=== PATIENT | male | born 1970 | race Caucasian/White ===

== ENCOUNTER → 2016-10-18 | Outpatient (CLI) | payer OTHER ==
--- NOTE | 2016-10-18 16:07 | REP ---
PA and lateral chest: Comparison 07/11/2014. There is an incomplete inspiratory effort with under aeration of the lung alonzo. There are no focal infiltrates. No pleural effusions. No masses. Cardiac size is normal. The miles, mediastinum, and bony thorax are unremarkable. There is no interval change. Impression: Incomplete inspiratory effort, otherwise, negative PA and lateral chest. Signed by Russel Bernabe MD 10/18/2016 03:58 P
== END ==
LOC: M WUC 13:11
PROVIDERS: ATTEND Nurse Practitioner Adult Health
DX: R06.02 Shortness of breath (principal)

== ENCOUNTER 2017-09-19 11:53 | Emergency (ER) | payer OTHER ==
[2017-09-19] MEDS: NS 1,000 ML IV (12:40)
[2017-09-19] MEDS: ASPIRIN 81 MG CHEW TABLET PO (12:40)
[2017-09-19] MEDS: GI COCKTAIL 50ML BTL(HYOSCYAMINE/MAALOX/LIDOCAINE VISCOUS)(1:3:1) PO (12:40)
[2017-09-19 12:50] LABS: BASO # 0.1 10^3/uL (0.0-0.2); BASO % 0.6 % (0.0-1.0); EOS # 0.2 10^3/uL (0.0-0.50); EOS % 2.2 % (0.0-3.0); HEMATOCRIT 50.1 % (42.0-52.0); HEMOGLOBIN 16.8 g/dl (14.0-18.0); IMMATURE GRANULOCYTE % 0.5 % (0-3.0); LYMPH # 2.2 10^3/uL (1.5-4.5); LYMPH % 26.1 % (24.0-44.0); MEAN CORPUSCULAR HEMOGLOBIN 28.9 pg (27.0-33.0); MEAN CORPUSCULAR HGB CONC 33.5 g/dl (32.0-36.5); MEAN CORPUSCULAR VOLUME 86.2 fl (80.0-96.0); MONO # 0.8 10^3/uL (0.0-0.8); MONO % 9.4 % (0.0-5.0); NEUTROPHILS # 5.1 10^3/uL (1.8-7.7); NEUTROPHILS % 61.2 % (36.0-66.0); PLATELET COUNT, AUTOMATED 204 10^3/uL (150-450); RED BLOOD COUNT 5.81 10^6/uL (4.30-6.10); RED CELL DISTRIBUTION WIDTH 13.2 % (11.5-14.5); WHITE BLOOD COUNT 8.3 10^3/uL (4.0-10.0)
[2017-09-19 12:54] LABS: PROTHROMBIN TIME 13.3 SECONDS (12.4-14.5)
[2017-09-19] MEDS: NITROGLYCERIN 0.4 MG SUBL TABLET SL (12:55)
[2017-09-19 13:07] LABS: ALBUMIN/GLOBULIN RATIO 0.91 (1.00-1.93); ALKALINE PHOSPHATASE 106 U/L (45-117); ALT/SGPT 98 U/L (12-78); ANION GAP 10 MEQ/L (8-16); AST/SGOT 92 U/L (7-37); BILIRUBIN,DIRECT < 0.1 MG/DL (0.0-0.2); BILIRUBIN,TOTAL 0.5 MG/DL (0.2-1.0); BLOOD UREA NITROGEN 9 MG/DL (7-18); CALCIUM LEVEL 9.2 MG/DL (8.5-10.1); CARBON DIOXIDE LEVEL 26 MEQ/L (21-32); CHLORIDE LEVEL 103 MEQ/L (98-107); CPK CREATINE PHOSPHOKINASE 109 U/L (39-308); CREATININE FOR GFR 0.98 MG/DL (0.70-1.30); GLOMERULAR FILTRATION RATE > 60.0 (>60); GLUCOSE, FASTING 166 MG/DL (70-100); LIPASE 1238 U/L (73-393); MB/CK RELATIVE INDEX 0.91 (< OR =4); POTASSIUM SERUM 3.9 MEQ/L (3.5-5.1); SODIUM LEVEL 139 MEQ/L (136-145); TOTAL PROTEIN 8.4 GM/DL (6.4-8.2); TROPONIN I < 0.02 NG/ML (< 0.10)
[2017-09-19] MEDS ORDERED: ISOVUE-370 76% 100ML VIAL (Q9967) As Ordered (13:23)
== END 2017-09-19 15:26 | disposition home or self-care (01) ==
LOC: M ED 11:53
DX: K85.90 Acute pancreatitis without necrosis or infection, unspecified (principal); E11.9 Type 2 diabetes mellitus without complications; I10 Essential (primary) hypertension; E78.5 Hyperlipidemia, unspecified; J45.909 Unspecified asthma, uncomplicated; Z88.8 Allergy status to other drugs, medicaments and biological substances; Z79.899 Other long term (current) drug therapy; Z79.84 Long term (current) use of oral hypoglycemic drugs
CPT/HCPCS: Q9967

== ENCOUNTER → 2017-10-01 | Outpatient (CLI) | payer OTHER ==
[2017-10-01 19:54] LABS: BASO # 0.1 10^3/uL (0.0-0.2); BASO % 0.6 % (0.0-1.0); EOS % 0.4 % (0.0-3.0); HEMATOCRIT 50.6 % (42.0-52.0); HEMOGLOBIN 16.5 g/dl (14.0-18.0); IMMATURE GRANULOCYTE % 0.3 % (0-3.0); LYMPH # 1.7 10^3/uL (1.5-4.5); LYMPH % 21.3 % (24.0-44.0); MEAN CORPUSCULAR HEMOGLOBIN 28.3 pg (27.0-33.0); MEAN CORPUSCULAR HGB CONC 32.6 g/dl (32.0-36.5); MEAN CORPUSCULAR VOLUME 86.8 fl (80.0-96.0); MONO # 1.1 10^3/uL (0.0-0.8); NEUTROPHILS # 5.1 10^3/uL (1.8-7.7); NEUTROPHILS % 63.4 % (36.0-66.0); PLATELET COUNT, AUTOMATED 210 10^3/uL (150-450); RED BLOOD COUNT 5.83 10^6/uL (4.30-6.10); RED CELL DISTRIBUTION WIDTH 13.5 % (11.5-14.5)
[2017-10-01 20:14] LABS: ALBUMIN/GLOBULIN RATIO 0.89 (1.00-1.93); ALKALINE PHOSPHATASE 91 U/L (45-117); ALT/SGPT 60 U/L (12-78); AMYLASE 38 U/L (25-115); ANION GAP 9 MEQ/L (8-16); AST/SGOT 56 U/L (7-37); BILIRUBIN,TOTAL 1.1 MG/DL (0.2-1.0); BLOOD UREA NITROGEN 9 MG/DL (7-18); CALCIUM LEVEL 8.6 MG/DL (8.5-10.1); CARBON DIOXIDE LEVEL 26 MEQ/L (21-32); CHLORIDE LEVEL 102 MEQ/L (98-107); CREATININE FOR GFR 1.04 MG/DL (0.70-1.30); GLOMERULAR FILTRATION RATE > 60.0 (>60); GLUCOSE, FASTING 155 MG/DL (70-100); LIPASE 172 U/L (73-393); POTASSIUM SERUM 4.7 MEQ/L (3.5-5.1); SODIUM LEVEL 137 MEQ/L (136-145); TOTAL PROTEIN 8.5 GM/DL (6.4-8.2)
== END ==
LOC: M WUC 16:10
DX: A09 Infectious gastroenteritis and colitis, unspecified (principal)
CPT/HCPCS: 82150

== ENCOUNTER → 2017-10-09 | Outpatient (CLI) | payer OTHER | LOC: M WUC 18:23 | DX: J18.9 Pneumonia, unspecified organism (principal) | CPT/HCPCS: 71046 ==

== ENCOUNTER → 2017-10-23 | Outpatient (CLI) | payer OTHER | LOC: M WUC 14:43 | DX: J16.8 Pneumonia due to other specified infectious organisms (principal) ==

== ENCOUNTER → 2017-10-24 | Outpatient (REF) | payer OTHER | LOC: M LAB REF 11:53 | DX: J16.8 Pneumonia due to other specified infectious organisms (principal) ==

== ENCOUNTER → 2018-01-30 | Outpatient (CLI) | payer OTHER ==
[2018-01-30 13:28] LABS: CREATININE FOR GFR 0.87 MG/DL (0.70-1.30); GLOMERULAR FILTRATION RATE > 60.0 (>60)
[2018-01-30 13:28] LABS: BLOOD UREA NITROGEN 10 MG/DL (7-18)
== END ==
LOC: M WUC 11:15
DX: Z01.818 Encounter for other preprocedural examination (principal); M54.5 Low back pain
CPT/HCPCS: 82565

== ENCOUNTER → 2018-08-04 | Outpatient (REF) | payer OTHER ==
[~2018-08-04] MED LIST: ABIL1TAB11 PO; EFFE150C2 PO; LOSA100T50 PO; METF500T13 PO; NORCOTAB PO; PROT1TAB2 PO; WELLTAB38 PO; XANA0.5T PO; ZOFR4TAB14 PO
[2018-08-04 18:09] LABS: FREE T3 2.7 PG/ML (2.2-4.0)
[2018-08-04 18:11] LABS: THYROID PEROXIDASE ANTIBODY 28.4 U/ML (<60.0)
[2018-08-04 18:12] LABS: THYROGLOBULIN ANTIBODY 15.7 U/ML (<60.0)
== END ==
LOC: M LAB REF 17:31
PROVIDERS: ATTEND Nurse Practitioner Adult Health
DX: E03.9 Hypothyroidism, unspecified (principal)

== ENCOUNTER → 2019-06-09 | Outpatient (CLI) | payer OTHER ==
[~2019-06-09] MED LIST changes: +HYDR-3715 PO; -NORCOTAB PO
[2019-06-09 15:41] LABS: BLOOD UREA NITROGEN 15 MG/DL (7-18); CREATININE FOR GFR 0.81 MG/DL (0.70-1.30); GLOMERULAR FILTRATION RATE > 60.0 (>60)
== END ==
LOC: M WUC 10:46
PROVIDERS: ATTEND Nurse Practitioner Family
DX: M54.5 Low back pain (principal)

== ENCOUNTER → 2019-07-02 | Outpatient (CLI) | payer OTHER ==
[~2019-07-02] MED LIST changes: +ACET300T52; +CALC-190 PO; +METO1TAB7; +PRAZ1CAP; +TIZA4TAB4; +TRAZ-252
--- NOTE | 2019-07-02 09:31 | REP ---
Clinical: Abdominal pain with history of incisional hernia. Technique: Axial noncontrast images from the lung bases to the pubic symphysis with coronal and sagittal re-formations. Comparison: 09/19/2017. Findings: Liver demonstrates subtle scattered hypodensities measuring up to approximately 1.8 cm which may represent cysts. Spleen, pancreas, gallbladder, bilateral adrenal glands and kidneys are relatively stable/normal for noncontrast evaluation. Evidence for prior gastric bypass surgery. There is a periumbilical hernia measuring approximately 4 cm maximal diameter which appears to contain fat and presumed subcutaneous stranding as well as possible small amount of fluid. Underlying bowel is identified at the peritoneal defect but without definite evidence for bowel herniation. There is no evidence for bowel obstruction. Normal terminal ileum, cecum and appendix are identified in the right lower quadrant. Few scattered colonic diverticula noted without acute diverticulitis. Pelvis demonstrates normal bladder and mild prostatomegaly along with small fat containing left inguinal hernia. No ascites. No free air. No adenopathy. Abdominal aorta without aneurysm. Musculoskeletal structures demonstrate degenerative changes and evidence for prior lower lumbar laminectomy and posterior fixation. Impression: 1. Hepatic hypodensities up to 1.8 cm cannot be further evaluated, and may warrant ultrasound evaluation. 2. Periumbilical hernia as described above. 3. Mild prominence to the prostate gland. Electronically Signed by Trenton Jones MD 07/02/2019 09:22 A
== END ==
LOC: M RAD 08:54
PROVIDERS: ATTEND Surgery
DX: K76.9 Liver disease, unspecified (principal); K57.90 Diverticulosis of intestine, part unspecified, without perforation or abscess without bleeding; Z98.84 Bariatric surgery status; K43.2 Incisional hernia without obstruction or gangrene; R10.33 Periumbilical pain

== ENCOUNTER 2019-07-05 17:19 | Emergency (ER) | payer OTHER ==
[~2019-07-05] VITALS: Ht 172.7 cm; Wt 110.6 kg
[~2019-07-05 17:19] MED LIST changes: -ACET300T52; -CALC-190 PO; -METO1TAB7; -PRAZ1CAP; -TIZA4TAB4; -TRAZ-252
[2019-07-05] MEDS ORDERED: ONDANSETRON 4MG/2ML VIAL (J2405) IV ONE (18:00)
[2019-07-05] MEDS ORDERED: MORPHINE 4 MG/ML 1ML VIAL/SYRINGE (J2270) IV ONE (18:00)
[2019-07-05] MEDS ORDERED: METO1TAB7 (18:09)
[2019-07-05] MEDS ORDERED: ACET300T52 (18:09)
[2019-07-05] MEDS ORDERED: PRAZ1CAP (18:09)
[2019-07-05] MEDS ORDERED: TIZA4TAB4 (18:09)
[2019-07-05] MEDS ORDERED: TRAZ-252 (18:09)
[2019-07-05] MEDS ORDERED: CALC-190 PO (18:09)
[2019-07-05 18:25] LABS: BASO % 0.5 % (0.0-1.0); EOS # 0.1 10^3/uL (0.0-0.5); EOS % 1.8 % (0.0-3.0); HEMATOCRIT 47.9 % (42.0-52.0); HEMOGLOBIN 15.1 g/dl (13.5-17.5); LYMPH # 2.8 10^3/uL (1.5-5.0); LYMPH % 34.7 % (24.0-44.0); MEAN CORPUSCULAR HGB CONC 31.5 g/dl (32.0-36.5); MEAN CORPUSCULAR VOLUME 79.3 fl (80.0-96.0); MONO # 0.7 10^3/uL (0.0-0.8); MONO % 8.8 % (0.0-5.0); NEUTROPHILS # 4.3 10^3/uL (1.5-8.5); NEUTROPHILS % 54.1 % (36.0-66.0); PLATELET COUNT, AUTOMATED 223 10^3/uL (150-450); RED BLOOD COUNT 6.04 10^6/uL (4.30-6.10)
--- NOTE | 2019-07-05 18:41 | REPVR ---
PROCEDURE INFORMATION: Exam: US Abdomen Limited Exam date and time: 07/05/2019 6:28 PM Age: 48 years old Clinical indication: Abdominal pain; Periumbilical; Additional info: Pain with umbilical hernia, R/O incarceration TECHNIQUE: Imaging protocol: Real-time ultrasound of the abdomen with image documentation. Examination is focused on the region of clinical interest. COMPARISON: CT ABD PELVIS W/O CONTRAST 07/02/2019 9:08 AM FINDINGS: Soft tissues: Examination of the umbilicus demonstrates the presence of an umbilical hernia containing fluid and solid components likely representing bowel and/or edematous mesentery. Hernia measures 5 x 3.5 cm maximally during the Valsalva maneuver. No significant increased flow on Doppler. Overall flow is diminished within the hernia, finding which may indicate vascular compression and incarceration. IMPRESSION: Findings compatible with umbilical hernia. As noted above there is diminished vascular flow in the hernia a finding which can be seen in association with an incarcerated hernia. Electronically signed by: Syed Mao On 07/05/2019 18:40:58 PM
[2019-07-05 19:00] LABS: ALBUMIN 3.9 GM/DL (3.2-5.2); ALT/SGPT 66 U/L (12-78); BILIRUBIN,DIRECT 0.2 MG/DL (0.0-0.2); BILIRUBIN,TOTAL 0.6 MG/DL (0.2-1.0); BLOOD UREA NITROGEN 14 MG/DL (7-18); CALCIUM LEVEL 9.4 MG/DL (8.5-10.1); CARBON DIOXIDE LEVEL 23 MEQ/L (21-32); CHLORIDE LEVEL 106 MEQ/L (98-107); CREATININE FOR GFR 0.84 MG/DL (0.70-1.30); GLOMERULAR FILTRATION RATE > 60.0 (>60); GLUCOSE, FASTING 86 MG/DL (70-100); LIPASE 162 U/L (73-393); POTASSIUM SERUM 3.7 MEQ/L (3.5-5.1); SODIUM LEVEL 140 MEQ/L (136-145); TOTAL PROTEIN 7.9 GM/DL (6.4-8.2)
[2019-07-05 19:56] VITALS: BP 143/95
== END 2019-07-05 20:02 | disposition home or self-care (01) ==
LOC: M ED 17:19
DX: K42.9 Umbilical hernia without obstruction or gangrene (principal); I50.9 Heart failure, unspecified; E11.9 Type 2 diabetes mellitus without complications; I10 Essential (primary) hypertension; K57.32 Diverticulitis of large intestine without perforation or abscess without bleeding; Z98.84 Bariatric surgery status; Z79.899 Other long term (current) drug therapy; Z88.6 Allergy status to analgesic agent; Z88.8 Allergy status to other drugs, medicaments and biological substances
CPT/HCPCS: 36415; 76705; 80048; 80076; 81001; 83690; 85025; 96374; 96375; 99284; J2270; J2405

== ENCOUNTER 2019-07-27 09:07 | Day surgery (SDC) | payer OTHER ==
[~2019-07-27] VITALS: Ht 172.7 cm; Wt 105.6 kg
[~2019-07-27 09:07] MED LIST changes: +ACET300T52; +CALC-190 PO; +IRON27TA2 PO; +LIDOCAINE 1% MDV 20ML VIAL SQ PRN; +LOSA50TA88 PO; +LR 1,000 ML IV ONE; +METO1TAB7; +MULTCAP PO; +NASC1SPR; +PRAZ1CAP; +TIZA4TAB4; +TRAZ-252; +ceFAZolin SOD 1 GM in D5W MINI-BAG PLUS 50 ML IV ONE
[2019-07-27] MEDS ORDERED: propofoL 200 MG/20 ML VIAL As Ordered ONE (09:45)
[2019-07-27] MEDS ORDERED: LIDOCAINE 2% INJ 100 MG/5 ML SDV (FOR ANES.) As Ordered ONE (09:45)
[2019-07-27] MEDS ORDERED: ONDANSETRON 4MG/2ML VIAL (J2405) As Ordered ONE (09:46)
[2019-07-27] MEDS ORDERED: fentaNYL 100 MCG/2 ML INJECTION (J3010) As Ordered ONE (09:49)
[2019-07-27] MEDS ORDERED: MIDAZOLAM INJ 2 MG/2 ML VIAL (J2250) As Ordered ONE (09:49)
[2019-07-27] MEDS ORDERED: ROCURONIUM BROMIDE 50 MG/5 ML VIAL As Ordered ONE (10:15)
[2019-07-27] MEDS ORDERED: dexameTHASONE 4 MG/ML 1ML VIAL (J1100) As Ordered ONE (10:17)
[2019-07-27] MEDS ORDERED: BUPIVACAINE/EPIN 0.25% 30 ML VIAL As Ordered ONE (10:20)
[2019-07-27] MEDS ORDERED: BUPIVACAINE HCL 0.25% 10 ML VIAL As Ordered ONE (10:20)
[2019-07-27] MEDS ORDERED: BUPIVACAINE LIPOSOME/PF 1.3% 20ML VIAL (13.3MG/ML)(EXPAREL)(C9290 PER1MG) As Ordered ONE (10:21)
[2019-07-27] MEDS ORDERED: ACETAMINOPHEN 1000MG 100ML IV BTL (OFIRMEV) (J0131 PER 10MG) As Ordered ONE (11:13)
[2019-07-27] MEDS ORDERED: oxyCODONE 5MG TAB As Ordered ONE (12:09)
[2019-07-27] MEDS ORDERED: METOCLOPRAMIDE INJ 10MG/2ML VIAL (J2765) IV PRN (12:30)
[2019-07-27] MEDS ORDERED: MEPERIDINE INJ 25 MG/ML VIAL (J2175) IV PRN (12:30)
[2019-07-27] MEDS ORDERED: ONDANSETRON 4MG/2ML VIAL (J2405) IV PRN (12:30)
[2019-07-27] MEDS ORDERED: fentaNYL 100 MCG/2 ML INJECTION (J3010) IV PRN (12:30)
[2019-07-27] MEDS ORDERED: oxyCODONE 5MG TAB PO PRN (12:30)
[2019-07-27] MEDS ORDERED: LR 1,000 ML IV SCH (12:30)
[2019-07-27 14:20] VITALS: BP 147/86
== END 2019-07-27 14:45 | disposition home or self-care (01) ==
LOC: M SDC 09:07
PROVIDERS: ATTEND Surgery
DX: K42.9 Umbilical hernia without obstruction or gangrene (principal); I10 Essential (primary) hypertension; I25.2 Old myocardial infarction; K21.9 Gastro-esophageal reflux disease without esophagitis; G47.30 Sleep apnea, unspecified; Z98.84 Bariatric surgery status; F43.10 Post-traumatic stress disorder, unspecified; F41.9 Anxiety disorder, unspecified; Z79.899 Other long term (current) drug therapy; Z88.8 Allergy status to other drugs, medicaments and biological substances
CPT/HCPCS: 49585; 88302; C9290; J0131; J0690; J1100; J2250; J2405; J3010

== ENCOUNTER → 2019-08-18 | Outpatient (CLI) | payer OTHER ==
[~2019-08-18] MED LIST changes: -LIDOCAINE 1% MDV 20ML VIAL SQ PRN; -LR 1,000 ML IV ONE; -ceFAZolin SOD 1 GM in D5W MINI-BAG PLUS 50 ML IV ONE
[2019-08-18 09:59] LABS: HEMATOCRIT 47.7 % (42.0-52.0); MEAN CORPUSCULAR HEMOGLOBIN 26.8 pg (27.0-33.0); MEAN CORPUSCULAR HGB CONC 31.4 g/dl (32.0-36.5); MEAN CORPUSCULAR VOLUME 85.2 fl (80.0-96.0); PLATELET COUNT, AUTOMATED 237 10^3/uL (150-450)
[2019-08-18 10:37] LABS: ALBUMIN 3.8 GM/DL (3.2-5.2); ALT/SGPT 69 U/L (12-78); BILIRUBIN,TOTAL 0.6 MG/DL (0.2-1.0); BLOOD UREA NITROGEN 12 MG/DL (7-18); CALCIUM LEVEL 9.1 MG/DL (8.5-10.1); CARBON DIOXIDE LEVEL 28 MEQ/L (21-32); CHLORIDE LEVEL 106 MEQ/L (98-107); CHOLESTEROL LEVEL 138 MG/DL (<200); CHOLESTEROL RISK RATIO 2.816 (<5); CREATININE FOR GFR 0.69 MG/DL (0.70-1.30); FERRITIN 21 NG/ML (26-388); GLOMERULAR FILTRATION RATE > 60.0 (>60); GLUCOSE, FASTING 70 MG/DL (70-100); HDL CHOLESTEROL 49 MG/DL (>40); HEMOGLOBIN A1c 5.2 %; IRON (FE) 65 UG/DL (65-175); LDL CHOLESTEROL 73 MG/DL (<100); NON-HDL-C 89 MG/DL; PERCENT SATURATION 19.2 % (19.7-50.0); POTASSIUM SERUM 3.9 MEQ/L (3.5-5.1); SODIUM LEVEL 140 MEQ/L (136-145); TOTAL IRON BINDING CAPACITY 338 UG/DL (250-450); TOTAL PROTEIN 7.3 GM/DL (6.4-8.2); TRIGLYCERIDES LEVEL 82 MG/DL (<150)
[2019-08-18 11:17] LABS: TOTAL 25(OH) VITAMIN D 52.9 NG/ML (30.0-100.0)
[2019-08-18 11:18] LABS: FOLATE 19.8 NG/ML (>5.4); VITAMIN B12 LEVEL 1750 PG/ML (247-911)
== END ==
LOC: M WUC 08:41
DX: K91.2 Postsurgical malabsorption, not elsewhere classified (principal); Z13.0 Encounter for screening for diseases of the blood and blood-forming organs and certain disorders involving the immune mechanism; Z13.220 Encounter for screening for lipoid disorders

== ENCOUNTER → 2020-08-03 | Outpatient (REF) | payer OTHER ==
[2020-08-03 13:14] LABS: PERCENT SATURATION 29.7 % (19.7-50.0)
== END ==
LOC: M LAB REF 12:05
PROVIDERS: ATTEND Nurse Practitioner Adult Health
DX: M25.562 Pain in left knee (principal)

== ENCOUNTER → 2020-08-30 | Outpatient (REF) | payer OTHER ==
[2020-08-30 17:36] LABS: APPEARANCE, URINE CLEAR (CLEAR); BACTERIA, URINE AUTO NEGATIVE (NEGATIVE); BILIRUBIN, URINE AUTO NEGATIVE (NEGATIVE); BLOOD, URINE BLOOD NEGATIVE (NEGATIVE); COLOR, URINE YELLOW (YELLOW); GLUCOSE, URINE (UA) AUTO NEGATIVE (NEGATIVE); KETONE, URINE AUTO NEGATIVE (NEGATIVE); LEUKOCYTE ESTERASE, URINE AUTO NEGATIVE (NEGATIVE); NITRITE, URINE AUTO NEGATIVE (NEGATIVE); PROTEIN, URINE AUTO NEGATIVE (NEGATIVE); RBC, URINE AUTO 0 /HPF (0-3); SQUAMOUS EPITHELIAL CELL UR AU 0 /HPF (0-6); UROBILINOGEN, URINE AUTO 0.2 mg/dL (0.0-2.0); WBC, URINE AUTO 1 /HPF (0-3)
[2020-08-30 17:38] LABS: INR 0.98; PROTHROMBIN TIME 13.2 SECONDS (12.5-14.3)
[2020-08-30 17:39] LABS: PARTIAL THROMBOPLASTIN TIME 31.3 SECONDS (24.2-38.5)
== END ==
LOC: M LAB REF 16:31
PROVIDERS: ATTEND Internal Medicine
DX: Z01.810 Encounter for preprocedural cardiovascular examination (principal)

== ENCOUNTER → 2021-01-25 | Outpatient (REF) | payer OTHER ==
[2021-01-25 14:06] LABS: FOLATE 20.2 NG/ML; PERCENT SATURATION 17.4 % (19.7-50.0); TOTAL 25(OH) VITAMIN D 47.2 NG/ML (30.0-100.0)
== END ==
LOC: M LAB REF 12:31
PROVIDERS: ATTEND Nurse Practitioner Adult Health
DX: K91.2 Postsurgical malabsorption, not elsewhere classified (principal); Z13.21 Encounter for screening for nutritional disorder

== ENCOUNTER → 2021-04-10 | Outpatient (REF) | payer OTHER, MEDICARE ==
[2021-04-10 13:09] LABS: PERCENT SATURATION 37.7 % (19.7-50.0)
== END ==
LOC: M LAB REF 11:37
PROVIDERS: ATTEND Internal Medicine
DX: Z00.00 Encounter for general adult medical examination without abnormal findings (principal); M17.10 Unilateral primary osteoarthritis, unspecified knee; M25.561 Pain in right knee

== ENCOUNTER → 2021-06-26 | Outpatient (REF) | payer OTHER, MEDICARE ==
[~2021-06-26] MED LIST changes: +LOSA100T45 PO; -LOSA100T50 PO; +LOSA50TA28 PO; -LOSA50TA88 PO; +TIZA10TA; -TIZA4TAB4
== END ==
LOC: M LAB REF 16:29
PROVIDERS: ATTEND Nurse Practitioner Adult Health
DX: R74.01 Elevation of levels of liver transaminase levels (principal)

== ENCOUNTER → 2021-09-23 | Outpatient (CLI) | payer OTHER, MEDICARE ==
[~2021-09-23] MED LIST changes: +TAMS1CAP17; +VITMTA PO
== END ==
LOC: M LABSMTC 09:32
PROVIDERS: ATTEND Anesthesiology
DX: Z01.818 Encounter for other preprocedural examination (principal); Z11.52 Encounter for screening for COVID-19

== ENCOUNTER → 2021-09-27 | Outpatient (REF) | payer OTHER, MEDICARE ==
[2021-09-28 21:17] LABS: TESTOSTERONE FREE (DIRECT) 8.8 pg/mL (7.2-24.0)
== END ==
LOC: M LAB REF 12:07
PROVIDERS: ATTEND Nurse Practitioner Adult Health
DX: R68.82 Decreased libido (principal)

== ENCOUNTER 2021-09-28 10:22 | Day surgery (SDC) | payer OTHER, MEDICARE ==
[~2021-09-28] VITALS: Ht 175.3 cm; Wt 96.6 kg
[~2021-09-28 10:22] MED LIST changes: +NS 1,000 ML IV ONE
[2021-09-28 11:56] VITALS: BP 118/72
[2021-09-28] MEDS ORDERED: LIDOCAINE 2% 100MG/5ML SDV (FOR ANES.) As Ordered ONE (11:56)
[2021-09-28] MEDS ORDERED: propofoL 200 MG/20 ML VIAL As Ordered ONE (11:56)
== END 2021-09-28 11:59 | disposition home or self-care (01) ==
LOC: M OPP 10:22
PROVIDERS: ATTEND Surgery
DX: D12.7 Benign neoplasm of rectosigmoid junction (principal); Z88.6 Allergy status to analgesic agent

== ENCOUNTER 2021-12-17 13:57 | Emergency (ER) | payer OTHER, MEDICARE ==
[~2021-12-17] VITALS: Ht 175.3 cm; Wt 95.5 kg
[~2021-12-17 13:57] MED LIST changes: -NS 1,000 ML IV ONE
[2021-12-17 15:55] LABS: BASO # 0.1 10^3/uL (0.0-0.2); BASO % 0.6 % (0.0-1.0); EOS # 0.1 10^3/uL (0.0-0.5); EOS % 1.2 % (0.0-3.0); HEMATOCRIT 55.9 % (42.0-52.0); HEMOGLOBIN 18.4 g/dl (13.5-17.5); LYMPH # 1.3 10^3/uL (1.5-5.0); LYMPH % 13.4 % (24.0-44.0); MEAN CORPUSCULAR HEMOGLOBIN 28.9 pg (27.0-33.0); MEAN CORPUSCULAR HGB CONC 32.9 g/dl (32.0-36.5); MEAN CORPUSCULAR VOLUME 87.9 fl (80.0-96.0); MONO # 0.9 10^3/uL (0.0-0.8); MONO % 9.6 % (2.0-8.0); NEUTROPHILS # 7.3 10^3/uL (1.5-8.5); PLATELET COUNT, AUTOMATED 209 10^3/uL (150-450); RED BLOOD COUNT 6.36 10^6/uL (4.30-6.10); WHITE BLOOD COUNT 9.7 10^3/uL (4.0-10.0)
[2021-12-17 16:16] LABS: BILIRUBIN,DIRECT 0.3 MG/DL (0.0-0.2); BILIRUBIN,TOTAL 0.5 MG/DL (0.2-1.0); CALCIUM LEVEL 9.6 MG/DL (8.5-10.1); CREATININE FOR GFR 1.38 MG/DL (0.70-1.30); GLOMERULAR FILTRATION RATE 58.1 (>56); POTASSIUM SERUM 4.6 MEQ/L (3.5-5.1); TOTAL PROTEIN 7.8 GM/DL (6.4-8.2)
[2021-12-17] MEDS ORDERED: NS 1,000 ML IV ONE (16:35)
[2021-12-17] MEDS ORDERED: MORPHINE 4 MG/ML 1ML VIAL/SYRINGE IV ONE (16:35)
[2021-12-17] MEDS: GASTROGRAFIN SOLUTION 30ML PO SCH ×2 (17:11→17:30)
[2021-12-17] MEDS ORDERED: ISOVUE-370 76% 100ML VIAL As Ordered ONE (17:52)
[2021-12-17 20:19] VITALS: BP 119/76
[2021-12-17] MEDS ORDERED: PERCOCET 5MG/325MG TAB PO ONE (20:20)
[2021-12-17] MEDS ORDERED: PERC5TAB12 PO (20:21)
[2021-12-17] MEDS ORDERED: MIRA3350 PO (20:21)
== END 2021-12-17 20:39 | disposition home or self-care (01) ==
LOC: M ED 13:57
DX: N13.2 Hydronephrosis with renal and ureteral calculous obstruction (principal); R16.1 Splenomegaly, not elsewhere classified; Z98.84 Bariatric surgery status; N40.0 Benign prostatic hyperplasia without lower urinary tract symptoms; M48.061 Spinal stenosis, lumbar region without neurogenic claudication; K40.30 Unilateral inguinal hernia, with obstruction, without gangrene, not specified as recurrent; K21.9 Gastro-esophageal reflux disease without esophagitis; I25.2 Old myocardial infarction; I10 Essential (primary) hypertension; E11.9 Type 2 diabetes mellitus without complications; Z88.6 Allergy status to analgesic agent; Z79.899 Other long term (current) drug therapy
CPT/HCPCS: 74177; 80048; 80076; 81001; 83690; 85025; 96361; 96374; 99284; J2270; Q9963; Q9967

== ENCOUNTER → 2021-12-21 | Outpatient (REF) | payer OTHER, MEDICARE ==
[~2021-12-21] MED LIST changes: +MIRA3350 PO; +PERC5TAB12 PO
== END ==
LOC: M SMT 13:04
PROVIDERS: ATTEND Physician Assistant
DX: N20.0 Calculus of kidney (principal)

== ENCOUNTER → 2022-01-02 | Outpatient (REF) | payer OTHER, MEDICARE | LOC: M LAB REF 12:17 | PROVIDERS: ATTEND Nurse Practitioner Adult Health | DX: Z98.84 Bariatric surgery status (principal) ==

== ENCOUNTER → 2022-05-28 | Outpatient (REF) | payer MEDICARE, OTHER ==
[2022-05-28 18:42] LABS: FERRITIN 23.6 NG/ML (10.5-307.3); FOLATE 20.2 NG/ML (>5.4); PERCENT SATURATION 26.9 % (19.7-50.0); TOTAL 25(OH) VITAMIN D 46.5 NG/ML (20.0-100.0)
== END ==
LOC: M LAB REF 16:59
PROVIDERS: ATTEND Nurse Practitioner Adult Health
DX: Z98.84 Bariatric surgery status (principal); K91.2 Postsurgical malabsorption, not elsewhere classified

== ENCOUNTER → 2024-09-01 | Outpatient (REF) | payer OTHER, MEDICARE ==
[~2024-09-01] MED LIST changes: -EFFE150C2 PO; +EFFE150C3 PO; -LOSA100T45 PO; +LOSA100T46 PO
[2024-09-01 13:43] LABS: PHOSPHORUS LEVEL 3.2 MG/DL (2.5-4.9)
[2024-09-01 13:47] LABS: FERRITIN 10.1 NG/ML (10.5-307.3)
[2024-09-01 13:48] LABS: FOLATE 6.8 NG/ML (>5.4); TOTAL 25(OH) VITAMIN D 33.2 NG/ML (20.0-100.0)
== END ==
LOC: M LAB REF 12:25
PROVIDERS: ATTEND Nurse Practitioner Adult Health
DX: Z98.84 Bariatric surgery status (principal)